=== PATIENT | female | born 1945 | race Caucasian/White ===

== ENCOUNTER 2019-11-26 16:27 | Outpatient (CLI) | payer MEDICARE, BC | END 2019-11-26 16:28 | disposition home or self-care (01) | LOC: COV 16:27 | PROVIDERS: ATTEND Family Medicine | DX: Z20.828 Contact with and (suspected) exposure to other viral communicable diseases (principal) ==

== ENCOUNTER 2019-12-22 21:09 | Emergency (ER) | payer MEDICARE, BC ==
--- NOTE | 2019-12-22 21:28 | ED Physician Documentation ---
PD HPI CHEST PAIN - Stated complaint Stated Complaint: HBP - Chief complaint Chief Complaint: Cardiac - History obtained from History obtained from: Patient - History of Present Illness Timing - onset: How many days ago (1-2) Timing - onset during: Rest, Light activity Timing - duration: Days (She got a new BP cuff for home use for her partner and had taken her own BP the past 2 days, and it has been elevated to 180s-200 systolic. Took it again few times today and was over 200 systolic each time. Had perhaps twinge of nonexertional CP today. Here for eval. No exertional CP, no edema.) Timing - details: Other (she does not know how long BP has been elevated as only had taken it the past couple of days.) Quality: Sharp (brief twinge earlier today) Location: Substernal Radiation: No: Jaw, Neck, Back Worsened by: No: Inspiration Associated symptoms: Other (denies headache nor blurred vision). No: Shortness of air, Nausea, Feeling faint / dizzy, General Weakness Recently seen: Not recently seen Review of Systems Constitutional: denies: Fever, Chills Nose: denies: Rhinorrhea / runny nose, Congestion Throat: denies: Sore throat Respiratory: denies: Cough GI: denies: Abdominal Pain, Nausea, Vomiting, Diarrhea Musculoskeletal: denies: Extremity swelling Neurologic: denies: Generalized weakness, Confused, Altered mental status, Headache PD PAST MEDICAL HISTORY - Past Medical History Past Medical History: No Cardiovascular: None Respiratory: None Neuro: None Endocrine/Autoimmune: None Psych: Depression, Anxiety - Present Medications Home Medications: Ambulatory Orders Medication Instructions Recorded Confirmed Metoprolol Succinate 25 mg PO DAILY #30 tab.er.24h 12/22/19 - Allergies Allergies/Adverse Reactions: Allergies Allergy/AdvReac Type Severity Reaction Status Date / Time No Known Drug Allergies Allergy Verified 12/22/19 21:15 PD ED PE NORMAL - Vitals Vital signs reviewed: Yes - General General: Alert and oriented X 3, No acute distress, Well developed/nourished - HEENT HEENT: Moist mucous membranes - Neck Neck: Supple, no meningeal sign, No adenopathy - Cardiac Cardiac: RRR, No murmur - Respiratory Respiratory: Clear bilaterally - Abdomen Abdomen: Soft, Non tender - Back Back: No CVA TTP - Derm Derm: Normal color, Warm and dry - Extremities Extremities: No tenderness to palpate, Normal ROM s pain, No edema, No calf tenderness / cord - Neuro Neuro: Alert and oriented X 3, No motor deficit, Normal speech - Psych Psych: Normal mood. No: Normal affect (mildly anxious about BP) Results - Vitals Vitals: Vital Signs - 24 hr 12/22/19 12/22/19 12/22/19 21:10 21:20 22:46 Temperature 37.1 C 37.1 C 37.1 C Heart Rate 84 84 78 Respiratory 18 18 16 Rate Blood Pressure 187/77 H 187/77 H 162/72 H O2 Saturation 96 96 100 Oxygen O2 Source Room air - EKG (time done) 21:23 Rate: Rate (enter#) (76) Rhythm: NSR Severance: Normal Intervals: Normal OR QRS: Normal Ischemia: Normal ST segments. No: ST elevation c/w ischemia, ST depression Compare to prior EKG: Old EKG unavailable - Labs Labs: Laboratory Tests 12/22/19 12/22/19 12/22/19 22:05 22:05 22:05 WBC 7.1 RBC 4.59 Hgb 13.9 Hct 42.4 MCV 92.4 MCH 30.3 MCHC 32.8 RDW 12.8 Plt Count 181 MPV 10.1 Neut # (Auto) 3.6 Lymph # (Auto) 2.8 [place] # (Auto) 0.5 Eos # (Auto) 0.1 Baso # (Auto) 0.1 Absolute Nucleated RBC 0.00 Nucleated RBC % 0.0 Sodium 139 Potassium 3.7 Chloride 103 Carbon Dioxide 26 Anion Gap 10.0 BUN 16 Creatinine 0.8 Estimated GFR (MDRD) 70 L Glucose 102 H Calcium 9.4 Magnesium 1.9 Total Bilirubin 0.5 AST 16 ALT 13 Alkaline Phosphatase 47 B-Natriuretic Peptide 64 Total Protein 7.0 Albumin 4.2 Globulin 2.8 Albumin/Globulin Ratio 1.5 Lipase 35 PD MEDICAL DECISION MAKING - ED course Complexity details: considered differential (new HTN and has been elevated for few days, and unknown how long prior to that. So seems reasonable to start BP med at low dose. Given history of prior cardiomyopathy, even though not seeming in heart failure, I would choose beta gary over just LURDES or ARB. ), d/w patient Departure - Departure Disposition: 01 Home, Self Care Clinical Impression: Hypertension Qualifiers: Hypertension type: unspecified Qualified Code(s): I10 - Essential (primary) hypertension Condition: Stable Record reviewed to determine appropriate education?: Yes Instructions: ED Hypertension New Begin Tx Follow-Up: Isabel Gonzalez MD [Primary Care Provider] - Prescriptions: Metoprolol Succinate 25 mg PO DAILY #30 tab.er.24h Comments: Your blood counts, kidney function, electrolytes are good. Your heart rhythm is normal. Your blood pressure sounds high enough to warrant starting a mild blood pressure medicine daily. Metoprolol 25 mg daily. Follow-up with your primary care in the next week or so. Recheck your blood pressure daily over the next week and see what the trend is. The blood pressure medicine may need to be adjusted up but would rather start with a low dose to begin with Discharge Date/Time: 12/22/19 22:46
[2019-12-22 22:14] LABS: BASOPHILS # (AUTO) 0.1 10^3/uL (0.0-0.1); BASOPHILS % (AUTO) 0.8 %; EOSINOPHILS # (AUTO) 0.1 10^3/uL (0.0-0.7); EOSINOPHILS % (AUTO) 1.8 %; HGB - HEMOGLOBIN 13.9 g/dL (12.0-16.0); LYMPHOCYTES # (AUTO) 2.8 10^3/uL (1.5-3.5); LYMPHOCYTES % (AUTO) 38.8 %; MEAN CORPUSCULAR HEMOGLOBIN 30.3 pg (27.0-31.0); MEAN CORPUSCULAR HGB CONC 32.8 g/dL (32.0-36.0); MEAN CORPUSCULAR VOLUME 92.4 fL (81.0-99.0); MEAN PLATELET VOLUME 10.1 fL (7.9-10.8); MONOCYTES # (AUTO) 0.5 10^3/uL (0.0-1.0); MONOCYTES % (AUTO) 7.6 %; NEUTROPHILS # (AUTO) 3.6 10^3/uL (1.5-6.6); NEUTROPHILS % (AUTO) 50.9 %; PLT - PLATELET COUNT 181 10^3/uL (130-450); RED BLOOD COUNT 4.59 10^6/uL (4.20-5.40); RED CELL DISTRIBUTION WIDTH 12.8 % (12.0-15.0); WHITE BLOOD COUNT 7.1 x10^3/uL (4.8-10.8)
[2019-12-22] MEDS ORDERED: METOPROLOL SUCCINATE 25 MG TABLET PO STA (22:25)
[2019-12-22 22:26] LABS: ALBUMIN 4.2 g/dL (3.2-5.5); ALBUMIN/GLOBULIN RATIO 1.5 (1.0-2.2); BILIRUBIN,TOTAL 0.5 mg/dL (0.2-1.0); CALCIUM 9.4 mg/dL (8.5-10.3); CREATININE 0.8 mg/dL (0.4-1.0); MAGNESIUM 1.9 mg/dL (1.7-2.8)
[2019-12-22 22:48] VITALS: BP 162/72
== END 2019-12-22 22:46 | disposition home or self-care (01) ==
LOC: ED 21:09
DX: I10 Essential (primary) hypertension (principal); Z86.79 Personal history of other diseases of the circulatory system
CPT/HCPCS: 36415; 80053; 82088; 83690; 83735; 83880; 84244; 85025; 93005; 99284; A9270

== ENCOUNTER 2021-04-05 08:00 | Outpatient (CLI) | payer MEDICARE, BC | END 2021-04-05 23:59 | LOC: LAB 08:00 | PROVIDERS: ATTEND Physician Assistant | DX: N30.01 Acute cystitis with hematuria (principal) | CPT/HCPCS: 87077; 87086; 87181 ==

== ENCOUNTER 2021-04-12 08:00 | Outpatient (CLI) | payer MEDICARE, BC ==
[2021-04-12 20:46] LABS: BILIRUBIN,URINE NEGATIVE (NEGATIVE); GLUCOSE, URINE (UA) NEGATIVE (NEGATIVE); KETONES,URINE (UA) NEGATIVE (NEGATIVE); LEUKOCYTE ESTERASE, URINE NEGATIVE (NEGATIVE); NITRITE,URINE NEGATIVE (NEGATIVE); OCCULT BLOOD,URINE NEGATIVE (NEGATIVE); PH,URINE 5.5 PH (5.0-7.5); PROTEIN,URINE NEGATIVE (NEGATIVE); UROBILINOGEN,URINE 0.2 (NORMAL) E.U./dL (NORMAL)
[2021-04-12 20:47] LABS: CLARITY,URINE CLEAR (CLEAR)
[2021-04-12 20:59] LABS: BACTERIA,URINE Few /HPF (None Seen); RBC,URINE None Seen /HPF (0-5); SQUAMOUS EPITHELIAL CELL,UR MOD Squamous (<= Few); WBC,URINE 0-3 /HPF (0-5)
== END 2021-04-12 23:59 ==
LOC: LAB 08:00
PROVIDERS: ATTEND Physician Assistant Medical
DX: R30.0 Dysuria (principal)
CPT/HCPCS: 81001; 87086

== ENCOUNTER 2021-04-25 14:52 | Outpatient (CLI) | payer MEDICARE, BC ==
--- NOTE | 2021-05-14 11:31 | Mammography Report ---
BILATERAL DIGITAL SCREENING MAMMOGRAM 3D/2D WITH EXAGGERATED CC: 04/25/2021 CLINICAL: Routine screening. No prior exams were available for comparison. The tissue of both breasts is heterogeneously dense. T his may lower the sensitivity of mammography. There are benign calcifications in the right breast. No significant masses, calcifications, or other findings are seen in either breast. IMPRESSION: BENIGN There is no mammographic evidence of malignancy. A 1 year screening mammogram is recommended. This exam was interpreted at Station ID: [id number]. NOTE: For mammograms, a report in lay terms will be sent to the patient. Approximately 15% of breast malignancies will not be visualized mammographically. In the management of a palpable breast mass, a negative mammogram must not discourage biopsy of a clinically suspicious lesion. Electronically Signed By: Hansel montez/aydin:05/11/2021 09:29:27 ACR BI-RADS Category 2: Benign Finding(s) 3342F PARENCHYMAL PATTERN: (D) - The breast(s) demonstrate(s) heterogeneously dense fibroglandular sergey pressley. BI-RADS CATEGORY: (2) - 2 RECOMMENDATION: (ANNUAL) - Recommend routine annual screening mammography. [id number] 1 year screening LATERALITY: (B)
== END 2021-04-25 14:53 | disposition home or self-care (01) ==
LOC: DI.S 14:52
DX: Z12.31 Encounter for screening mammogram for malignant neoplasm of breast (principal)

== ENCOUNTER 2023-01-07 14:44 | Outpatient (CLI) | payer MEDICARE, BC ==
[2023-01-07 20:57] LABS: CALCIUM 9.5 mg/dL (8.5-10.3); CREATININE 1.3 mg/dL (0.6-1.3); POTASSIUM 3.6 mmol/L (3.5-4.5)
--- NOTE | 2023-01-08 16:06 | Mammography Report ---
BILATERAL DIGITAL SCREENING MAMMOGRAM 3D/2D: 01/07/2023 CLINICAL: Routine screening. Comparison is made to exam dated: 04/25/2021 mammogram - [facility]. Both breasts are heterogeneously dense, which may obscure small masses (category c / 51-75% glandular tissue). There are benign calcifications in the right breast. No significant masses, calcifications, or other findings are seen in either breast. There has been no significant interval change. IMPRESSION: BENIGN There is no mammographic evidence of malignancy. A 1 year screening mammogram is recommended. Based on the Tyrer Cuzick model (a risk assessment model) the patients lifetime risk is 3.1% and her 10 year risk is 0.0%. According to the ACR, ACS, and NCCN guidelines, an annual breast MRI exam dewey g with mammogram is recommended if the patients lifetime risk is 20% or greater. This exam was interpreted at Station ID: [id number]. NOTE: For mammograms, a report in lay terms will be sent to the patient. Approximately 15% of breast malignancies will not be visualized mammographically. In the management of a palpable breast mass, a negative mammogram must not discourage biopsy of a clinically suspicious lesion. Electronically Signed By: Hansel montez/aydin:01/08/2023 08:03:25 letter sent: No_Letter ACR BI-RADS Category 2: Benign Finding(s) 3342F PARENCHYMAL PATTERN: (D) - The breast(s) demonstrate(s) heterogeneously dense fibroglandular sergey pressley. BI-RADS CATEGORY: (2) - 2 Mammogram [id number] 1 year screening LATERALITY: (B)
== END 2023-01-07 14:45 | disposition home or self-care (01) ==
LOC: DI.S 14:44
PROVIDERS: ATTEND Nurse Practitioner Primary Care
DX: Z12.31 Encounter for screening mammogram for malignant neoplasm of breast (principal); R92.333 Mammographic heterogeneous density, bilateral breasts; I10 Essential (primary) hypertension
CPT/HCPCS: 36415; 80048

== ENCOUNTER 2023-03-19 08:00 | Outpatient (CLI) | payer MEDICARE, BC | END 2023-03-19 23:59 | disposition home or self-care (01) | LOC: LAB.S 08:00 | PROVIDERS: ATTEND Internal Medicine | DX: L03.90 Cellulitis, unspecified (principal) | CPT/HCPCS: 87070; 87181; 87205 ==

== ENCOUNTER 2023-04-18 14:08 | Outpatient (CLI) | payer MEDICARE, BC ==
[2023-04-18 20:02] LABS: CALCIUM 9.5 mg/dL (8.5-10.3); CREATININE 0.9 mg/dL (0.6-1.3); POTASSIUM 3.5 mmol/L (3.5-4.5)
== END 2023-04-18 14:09 | disposition home or self-care (01) ==
LOC: LAB.S 14:08
PROVIDERS: ATTEND Nurse Practitioner Primary Care
DX: I10 Essential (primary) hypertension (principal)
CPT/HCPCS: 36415; 80048